=== PATIENT | male | born 1980 | race Caucasian/White ===

== ENCOUNTER 2022-07-24 10:37 | Emergency (ER) | payer OTHER ==
[~2022-07-24] VITALS: Ht 182.9 cm; Wt 100.0 kg
[2022-07-24 11:56] LABS: BASOPHILS % (AUTO) 0.5 % (0.0-2.0); EOSINOPHILS % (AUTO) 1.8 % (1.0-6.0); HEMATOCRIT 39.5 % (41-53); HEMOGLOBIN 12.9 g/dL (13.5-17.5); LYMPHOCYTES # (AUTO) 1.7 K/uL (1.0-4.8); LYMPHOCYTES % (AUTO) 14.1 % (22.0-44.0); MEAN CORPUSCULAR HEMOGLOBIN 30.7 pg (26.0-34.0); MEAN CORPUSCULAR HGB CONC 32.7 G/dL (31.0-37.0); MEAN CORPUSCULAR VOLUME 94 fL (80-100); MONOCYTES # (AUTO) 1.1 K/uL (0.1-1.0); NEUTROPHILS # (AUTO) 9.2 K/uL (1.8-7.7); NEUTROPHILS % (AUTO) 74.6 % (40.0-70.0); PLATELET COUNT (AUTO) 364 K/uL (150-450)
[2022-07-24 12:05] LABS: ANION GAP 4 mmol/L (8-16); CALCIUM, TOTAL 8.7 mg/dL (8.8-10.5); CARBON DIOXIDE 34 mmol/L (22-29); CHLORIDE 98 mmol/L (98-107); CREATININE 0.92 mg/dL (0.60-1.30); GLUCOSE,RANDOM 98 mg/dL (70-110); POTASSIUM 3.9 mmol/L (3.5-5.1); SODIUM SERUM 136 mmol/L (136-145); UREA NITROGEN, BLOOD 15 mg/dL (7-18)
[2022-07-24 12:07] LABS: GLOMERULAR FILTR. RATE CALC > 60 mL/min (>60)
[2022-07-24 12:09] LABS: ALANINE AMINOTRANSFERASE 38 U/L (12-78); ALBUMIN 2.5 g/dL (3.4-5.0); ALKALINE PHOSPHATASE 124 U/L (46-116); ASPARTATE AMINOTRANSFERASE 28 U/L (15-37); BILIRUBIN,TOTAL 0.5 mg/dL (0.1-1.0); TOTAL PROTEIN, SERUM 7.3 g/dL (6.4-8.2)
[2022-07-24 12:11] LABS: B-TYPE NATRIURETIC PEPTIDE 1760 pg/mL (0-100)
[2022-07-24] MEDS ORDERED: FUROSEMIDE 20 MG/2 ML VIAL IVP ONE (12:45)
[2022-07-24] MEDS ORDERED: SODIUM CHLORIDE 0.9% 100 ML ONE ×2 (13:05→15:05)
[2022-07-24] MEDS ORDERED: IOHEXOL 350 MG/ML 100 ML VIAL ONE ×2 (13:05→15:05)
[2022-07-24 13:35] LABS: COVID AG,FIA SOURCE NASOPHARYNGEAL
[2022-07-24] MEDS ORDERED: AZITHROMYCIN 500 MG/NS 250 ML IV ONE (14:00)
[2022-07-24] MEDS ORDERED: VANCOMYCIN HCL 1.25 GM in DEXTROSE 5%-WATER 250 ML IV ONE (14:00)
[2022-07-24] MEDS ORDERED: PIPERACILLIN SODIUM/TAZOBACTAM 4.5 GM in DEXTROSE 5%-WATER 100 ML IV ONE (14:00)
[2022-07-24 14:06] LABS: INFLUENZA TYPE A NEGATIVE FOR TYPE A (NEGATIVE); INFLUENZA TYPE B NEGATIVE FOR TYPE B (NEGATIVE)
[2022-07-24] MEDS ORDERED: ZOLPIDEM TARTRATE 5 MG TABLET PO PRN (15:15)
[2022-07-24] MEDS ORDERED: HYDROCODONE/ACETAMINOPHEN 5-325 MG TABLET PO PRN (15:15)
[2022-07-24] MEDS ORDERED: MAGNESIUM HYDROXIDE SUSPENSION 30 ML UDCUP PO PRN (15:15)
[2022-07-24] MEDS ORDERED: ACETAMINOPHEN 325 MG TABLET PO PRN (15:15)
[2022-07-24] MEDS ORDERED: *CLINICAL-LEVOFLOXACIN IVPB DOSING CLINICAL ONE (15:15)
[2022-07-24] MEDS ORDERED: ONDANSETRON HCL 4 MG/2 ML VIAL IVP PRN (15:15)
[2022-07-24] MEDS ORDERED: MORPHINE SULFATE 2 MG/ML SYRINGE IVP PRN (15:15)
[2022-07-24] MEDS ORDERED: BISACODYL 10 MG RECTAL RECTAL SUPPOSITORY PR PRN (15:15)
[2022-07-24] MEDS ORDERED: ASPIRIN 325 MG TABLET PO ONE (15:45)
[2022-07-24] MEDS ORDERED: HEPARIN SODIUM,PORCINE 5,000 UNITS/ML VIAL SQ SCH (16:00)
[2022-07-24] MEDS ORDERED: LEVOFLOXACIN 750 MG/D5% WATER 150 ML IV SCH (16:00)
[2022-07-24] MEDS: MORPHINE SULFATE 2 MG/ML SYRINGE IVP ONE ×2 (16:17→16:24)
[2022-07-24 18:53] VITALS: BP 117/67
[2022-07-24] MEDS ORDERED: DOCUSATE SODIUM 100 MG CAPSULE PO SCH (21:00)
[2022-07-24] MEDS ORDERED: FUROSEMIDE 40 MG/4 ML VIAL IVP SCH (21:00)
[2022-07-25] MEDS ORDERED: PANTOPRAZOLE SODIUM 40 MG DR TABLET PO SCH (09:00)
[2022-07-25] MEDS ORDERED: LISINOPRIL 5 MG TABLET PO SCH (09:00)
== END 2022-07-24 20:03 | disposition left against medical advice (07) ==
LOC: EMS 10:40 → EDBD 10:40 → UNDOADMIN 15:40 → AHU 15:40 → EMS 20:03
DX: I50.9 Heart failure, unspecified (principal); U07.1 COVID-19; J18.9 Pneumonia, unspecified organism; Z91.018 Allergy to other foods; Z20.822 Contact with and (suspected) exposure to COVID-19
CPT/HCPCS: 99285; 93306; 96365; 71275; 96367; 93971; 71045; 96366; 96375; 87426; 80053; 83880; 84484; 85025; 85379; 87804; 93005; 96368; 96372; 36415; G0480; J0456; J1940; J2270; J2543; J3370; J1644; J1956; Q9967; J7060 ×2; J7050; G0378